=== PATIENT | male | born 1990 | race Caucasian/White ===

== ENCOUNTER 2020-04-15 14:08 | Emergency (ER) | payer BC, SELFPAY ==
[2020-04-15 14:09] VITALS: BP 134/77; PULSE 70; RESP 14; TEMP 37.1; O2SAT 97; BMI 24.4
--- NOTE | 2020-04-15 14:46 | HMH.EDUTC ---
[facility] [place] Disposition Clinical Impression: Viral syndrome, Exposure to COVID-19 virus Disposition: Home, Self-Care Condition on Discharge: Good Instructions: DI for COVID-19 (Suspected or Confirmed ), Preventing the Spread of Coronavirus Discharge Instructions Additional Instructions: Drink plenty of fluids. Take tylenol for pain or fever. Return if you begin to have difficulty breathing. Follow up with your regular doctor. GO TO THE ER FOR ANY WORSENING SYMPTOMS Prescriptions: Ondansetron [Zofran 4mg ODT] 4 mg PO Q8HP PRN #12 tab.rapdis PRN Reason: Nausea Transmission Status: Received by [id number] Referrals: PCP,No [Primary Care Provider] - Forms: Work/School Release Time of Disposition: 14:48 Medical Decision Making - Medical Records Medical records reviewed: No: I reviewed the patient's medical records. - Nick Inquiry Pt receiving controlled substance: No Vital Signs: 04/15/20 14:09 04/15/20 15:00 Temperature 98.7 F 98 F Temperature Source Oral Pulse Rate 87 Pulse Rate [Right] 70 Respiratory Rate 14 13 Blood Pressure 122/67 Blood Pressure [Right Arm] 134/77 Blood Pressure Mean [Right Arm] 96 02 Sat by Pulse Oximetry 97 [facility] [place] HPI - General Stated complaint: Covid exposure, symptoms Time Seen by Provider: 04/15/20 14:46 Mode of Arrival: Ambulatory Source of Information: Patient Limitations: No Limitations Description of Symptoms (Recalled from Triage Doc. by RN): pt requesting COVID test. pt c/o [place], sore throat and SOA HEENT Symptoms (Recalled from RN notes): No Resp Symptoms (Recalled from RN notes): Yes Skin Symptoms (Recalled from RN notes): No MS Symptoms (Recalled from RN notes): No Functional Status (Recalled from RN notes): wnl - History of Present Illness Provider Complaint: He c/o sore throat and feeling bad for the past 2 days. He denies any documented exposure to covid, but he states that he has the symptoms and would like to be tested. - Related Data Previous Rx's Medication Instructions Recorded Ondansetron [Zofran 4mg ODT] 4 mg PO Q8HP PRN #12 tab.rapdis 04/15/20 Allergies Allergy/AdvReac Type Severity Reaction Status Date / Time No Known Allergies Allergy Verified 04/15/20 14:22 - Worker's Comp Is this a Worker's Comp case?: No Is this an [facility] Worker's Comp?: No Is this a [facility] Worker's Comp?: No [facility] History - Hepatitis A Screen Drug use history?: No High risk sexual behaviors?: No History of sexually transmitted infection?: No Currently employed?: No Childcare worker?: No Do you have indoor plumbing?: Yes Do you have electricity?: Yes Attestation statement:: This patient has been screened for Hepatitis A risk factors. I have reviewed the patient's past medical history: Yes ROS Obtained: Yes All systems reviewed & no additional complaints - Constitutional Constitutional: Reports system reviewed and no additional complaints, except as docu - Eyes Eyes: Reports system reviewed and no additional complaints, except as docu - ENT Ears, Nose, Mouth, and Throat: Reports system reviewed and no additional complaints, except as docu - Cardiovascular Cardiovascular: Reports system reviewed and no additional complaints, except as docu - Respiratory Respiratory: Reports system reviewed and no additional complaints, except as docu - Gastrointestinal Gastrointestingal: Reports: system reviewed and no additional complaints, except as docu Physical Exam - General General appearance: alert, in no apparent distress - Head Head exam: atraumatic, normocephalic, normal inspection - Eye Eye exam: Present: normal appearance, PERRL, EOMI - ENT ENT exam: Present: normal exam, normal oropharynx, mucous membranes moist, TM's normal bilaterally, normal external ear exam - Neck Neck exam: Present: normal inspection, full ROM, trachea midline. Absent: meningismus, lymphadenopathy - Chest Chest inspectio
[2020-04-15 15:00] VITALS: BP 122/67; PULSE 87; RESP 13; TEMP 36.6; O2SAT 99
== END 2020-04-15 15:01 | disposition home or self-care (01) ==
PROVIDERS: Emergency Provider Nurse Practitioner Family
DX: Z20.822 Contact with and (suspected) exposure to COVID-19 (principal); B34.9 Viral infection, unspecified
CPT/HCPCS: 99202; G0463; U0003

== ENCOUNTER 2020-11-30 11:12 | Emergency (ER) | payer BC, SELFPAY ==
[2020-11-30 12:08] VITALS: PULSE 88; RESP 16; TEMP 37; O2SAT 98; BMI 25.1
--- NOTE | 2020-11-30 12:30 | HMH.EDUTC ---
[facility] [place] Disposition Clinical Impression: Foreign body of left cornea Qualifiers: Encounter type: initial encounter Qualified Code(s): T15.02XA - Foreign body in cornea, left eye, initial encounter Disposition: Home, Self-Care Condition on Discharge: Good Instructions: How to Get a Foreign Body Out of Your Eye, Tetanus, Diphtheria, Pertussis (Tdap) Vaccine, DI for Foreign Body in the Eye Additional Instructions: Go to the [facility] to be seen now (as soon as you leave here). Follow the eye doctor's recommendations and orders from there on. GO TO THE ER FOR ANY CONCERNS OR WORSENING SYMPTOMS Referrals: Provider,Referral, MD [Primary Care Provider] - Forms: Work/School Release Time of Disposition: 12:33 Medical Decision Making - Medical Records Medical records reviewed: Yes: I reviewed the patient's medical records. - Nick Inquiry Pt receiving controlled substance: No Vital Signs: 11/30/20 12:08 11/30/20 12:36 Temperature 98.6 F 98.3 F Temperature Source Temporal Artery Scan Oral Pulse Rate 84 Pulse Rate [Right] 88 Respiratory Rate 16 16 Blood Pressure 124/70 Blood Pressure Source Automatic Cuff Blood Pressure Position Sitting 02 Sat by Pulse Oximetry 98 Oxygen Delivery Method Room Air Orders (Tests/Meds): ED MEDICATIONS Discontinued Medications Generic Name Dose Route Start Last Admin Trade Name Freq PRN Reason Stop Dose Admin Tetanus/Reduced Diphtheria/Acell Pertussis 0.5 ml 11/30/20 12:25 Tet/Diphth/Pert-Adult 0.5ml Syringe IM 11/30/20 12:26 .ONCE ONE Medical Decision Narrative: I called [facility], they are going to see him as soon as he can get there. [facility] [place] HPI - General Stated complaint: left eye pain Time Seen by Provider: 11/30/20 12:15 Mode of Arrival: Ambulatory Source of Information: Patient Limitations: No Limitations Description of Symptoms (Recalled from Triage Doc. by RN): left eye red, painful, watering. Thinks he may have scratched it HEENT Symptoms (Recalled from RN notes): Yes (left eye pain) Resp Symptoms (Recalled from RN notes): No Skin Symptoms (Recalled from RN notes): No MS Symptoms (Recalled from RN notes): No Functional Status (Recalled from RN notes): na - History of Present Illness Provider Complaint: Since yesterday, he has felt like he has something in his left eye and it has been irritated and watery. He denies getting anything in the eye that he knows of. His vision is not affected other than all the drainage makes it hard to see at times. - Related Data Previous Rx's Medication Instructions Recorded Ondansetron [Zofran 4mg ODT] 4 mg PO Q8HP PRN #12 tab.rapdis 04/15/20 Allergies Allergy/AdvReac Type Severity Reaction Status Date / Time No Known Allergies Allergy Verified 04/15/20 14:22 - Worker's Comp Is this a Worker's Comp case?: No [facility] History - Hepatitis A Screen Drug use history?: No High risk sexual behaviors?: No History of sexually transmitted infection?: No Currently employed?: No Childcare worker?: No Do you have indoor plumbing?: Yes Do you have electricity?: Yes Attestation statement:: This patient has been screened for Hepatitis A risk factors. I have reviewed the patient's past medical history: Yes ROS Obtained: Yes All systems reviewed & no additional complaints - Constitutional Constitutional: Denies chills, Denies fever(s) - Eyes Eyes: Reports as per HPI - ENT Ears, Nose, Mouth, and Throat: Denies dizziness, Denies otalgia, Denies sore throat - Cardiovascular Cardiovascular: Denies chest pain - Respiratory Respiratory: Denies chest congestion, Denies cough Physical Exam - General General appearance: alert, in no apparent distress - Head Head exam: atraumatic, normocephalic, normal inspection - Eye Eye exam: Present: PERRL, EOMI, conjunctival injection - Expanded Eye Exam Eyelids: bilateral: normal inspection Pup
[2020-11-30 12:36] VITALS: BP 124/70; PULSE 84; RESP 16; TEMP 36.8; O2SAT 98
== END 2020-11-30 12:37 | disposition home or self-care (01) ==
PROVIDERS: Emergency Provider Nurse Practitioner Family
DX: T15.02XA Foreign body in cornea, left eye, initial encounter (principal)
CPT/HCPCS: 99202; G0463

== ENCOUNTER 2021-08-16 09:15 | Emergency (ER) | payer BC, SELFPAY ==
[2021-08-16 09:30] VITALS: BP 112/88; PULSE 68; RESP 19; TEMP 37; O2SAT 97; BMI 23.8
--- NOTE | 2021-08-16 09:48 | HMH.EDUTC ---
[facility] [place] Clinical Impression: URI (upper respiratory infection) Qualifiers: URI type: unspecified URI Qualified Code(s): J06.9 - Acute upper respiratory infection, unspecified Disposition: Home, Self-Care Condition on Discharge: Good Instructions: Sinusitis, Sore Throat Additional Instructions: *Monitor Temp, Over the counter Motrin or Tylenol as directed/as needed Tylenol every 4 hours and Motrin every 6 hours (as long as your family doctor has told you that you can take it) for fever or pain. and straight to ER if unable to lower temp less than 101.0 after medication given *Warm salt water gargles may help to soothe the throat *Throat Lozenges *Warm fluids like tea with honey may help to soothe the throat *Sleep elevated *Humidifier/Vaporizer *Bromfed may cause drowsiness. Know how it effects you (your child) before driving, caring for small child, or sending your child to school. Not other antihistamines/allergy medications while taking bromfed Follow up IMMEDIATELY for new or worsening symptoms or no Noticeable improvement over the next 48-72 hours. 911 for difficulty breathing or swallowing Prescriptions: Brompheniramine/Pseudoephed/Dm [Bromfed Dm Cough Syrup] 2.5 - 5 ml PO Q4-6H PRN #150 ml PRN Reason: Cough Transmission Status: Pending to [facility] predniSONE [Prednisone 20mg Tab] 20 mg PO BID 5 Days #10 tab Transmission Status: Pending to [facility] Azithromycin [Z-Mukesh 250mg Tab] 250 mg PO DIRECTED #6 tab Transmission Status: Pending to [facility] Referrals: Provider,Referral, MD [Primary Care Provider] - As needed Forms: Work/School Release Time of Disposition: 09:59 Medical Decision Making - Nick Inquiry Pt receiving controlled substance: No Nick was queried for this patient: No Vital Signs: 08/16/21 09:30 Temperature 98.6 F Temperature Source Oral Pulse Rate [Right Brachial] 68 Respiratory Rate 19 Blood Pressure [Right Arm] 112/88 Blood Pressure Mean [Right Arm] 96 Blood Pressure Source [Right Arm] Automatic Cuff Blood Pressure Position [Right Arm] Sitting 02 Sat by Pulse Oximetry 97 Oxygen Delivery Method Room Air [facility] [place] HPI - General Stated complaint: sore throat, bilateral ear pressure, congestion Time Seen by Provider: 08/16/21 09:48 Mode of Arrival: Ambulatory Source of Information: Patient Limitations: No Limitations Description of Symptoms (Recalled from Triage Doc. by RN): PATIENT C/O COUGH, CHEST CONGESTION, EAR PRESSURE AND SORE THROAT X 3 DAYS HEENT Symptoms (Recalled from RN notes): Yes Resp Symptoms (Recalled from RN notes): Yes Skin Symptoms (Recalled from RN notes): No MS Symptoms (Recalled from RN notes): No Functional Status (Recalled from RN notes): WNL - History of Present Illness Provider Complaint: Patient state that she has been having sore throat, sinus congestion and pressure, drainage in the back of his throat and pressure in his ears States that today he was still feeling bad so he came in to get checked - Related Data Previous Rx's Medication Instructions Recorded Ondansetron [Zofran 4mg ODT] 4 mg PO Q8HP PRN #12 tab.rapdis 04/15/20 Azithromycin [Z-Mukesh 250mg Tab] 250 mg PO DIRECTED #6 tab 08/16/21 Brompheniramine/Pseudoephed/Dm 2.5 - 5 ml PO Q4-6H PRN #150 ml 08/16/21 [Bromfed Dm Cough Syrup] predniSONE [Prednisone 20mg 20 mg PO BID 5 Days #10 tab 08/16/21 Tab] Allergies Allergy/AdvReac Type Severity Reaction Status Date / Time No Known Allergies Allergy Verified 04/15/20 14:22 - Worker's Comp Is this a Worker's Comp case?: No [facility] History - Hepatitis A Screen Attestation statement:: This patient has been screened for Hepatitis A risk factors. I have reviewed the patient's past medical history: Yes - Social History Alcohol Intake: never Occupational Status: other ROS Obtained: Yes All systems reviewed & no additional complaints, Yes Systems
[2021-08-16 10:02] VITALS: BP 112/88; PULSE 68; RESP 19; TEMP 37; O2SAT 97
== END 2021-08-16 10:07 | disposition home or self-care (01) ==
PROVIDERS: Emergency Provider Nurse Practitioner
DX: J06.9 Acute upper respiratory infection, unspecified (principal); J02.9 Acute pharyngitis, unspecified
CPT/HCPCS: 99212; G0463